=== PATIENT | male | born 1985 | race Native Hawaiian/Other Pacific Islander ===

== ENCOUNTER 2020-08-31 13:37 | Outpatient (CLI) | payer OTHER | END 2020-08-31 19:27 | disposition home or self-care (01) | LOC: US 13:37 | PROVIDERS: ATTEND Nurse Practitioner Family | DX: D47.3 Essential (hemorrhagic) thrombocythemia (principal); N50.819 Testicular pain, unspecified | CPT/HCPCS: 36415; 85610; 86316 ==

== ENCOUNTER 2021-03-09 14:30 | Outpatient (CLI) | payer OTHER | END 2021-03-09 23:59 | disposition home or self-care (01) | LOC: LABW 14:30 | PROVIDERS: ATTEND Nurse Practitioner Family | DX: D47.3 Essential (hemorrhagic) thrombocythemia (principal) | CPT/HCPCS: 36415 ==

== ENCOUNTER 2021-11-20 18:41 | Emergency (ER) | payer OTHER ==
[~2021-11-20] VITALS: Ht 172.7 cm; Wt 115.7 kg
[2021-11-20 20:40] VITALS: BP 126/72; TEMP 99.1
== END 2021-11-20 20:40 | disposition home or self-care (01) ==
LOC: ED 18:41
DX: J06.9 Acute upper respiratory infection, unspecified (principal); R50.9 Fever, unspecified; Z20.822 Contact with and (suspected) exposure to COVID-19
CPT/HCPCS: 87502; 87635; 87651; 93005; 96372; 99283; J0696; J1100; J1885; U0003

== ENCOUNTER 2023-01-15 14:47 | Outpatient (CLI) | payer OTHER ==
[2023-01-15 15:02] LABS: PLATELET COUNT 820 K/uL (142-355)
== END 2023-01-15 19:15 | disposition home or self-care (01) ==
LOC: LABW 14:47
PROVIDERS: ATTEND Nurse Practitioner Family
DX: D75.838 Other thrombocytosis (principal); R73.9 Hyperglycemia, unspecified
CPT/HCPCS: 36415; 83036; 85027